=== PATIENT | female | born 1975 | race Caucasian/White ===

== ENCOUNTER 2022-09-08 17:23 | Emergency (ER) | payer MEDICAID ==
[2022-09-08] MEDS ORDERED: HYDROmorphone 1 MG/ML CARPUJECT IVP STA (17:59)
--- NOTE | 2022-09-08 18:00 | ED Physician Documentation ---
History of Present Illness - Stated complaint Stated Complaint: LFT LEG SWOLLEN - Chief complaint Chief Complaint: Resp - Additonal information Additional information: 47-year-old female presents to the ER for evaluation of acute left lower leg pain, loss of pulse and cyanotic extremity. States that she woke up this morning with some mild left leg pain is gotten acutely worse over the day and this afternoon they noticed that it was discolored. Its been painful. They applied ice to the extremity thinking maybe she pulled a muscle. No history of similar. Patient denies any history of hypertension or diabetes. She does not take any prescribed medications. She is not a tobacco user. She is also endorsing some chest pain and Shortness of air. Thought it could possibly be her asthma. Also reports she has had COVID 3 times. Thought she had long COVID 19. She is not vaccinated for COVID 19 On exam I am greeted by woman who appears acutely uncomfortable. She is a heart rate of 128. Blood pressure of 139/74. The left leg is cold and dusky in comparison to the right. I am unable to palpate femoral popliteal or DP pulses. I do have biphasic DP pulses. Monophasic femoral pulses. I could not appreciate popliteal pulses. 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 - Present Medications Home Medications: Ambulatory Orders Medication Instructions Recorded Confirmed Albuterol [Ventolin Hfa] 02/08/15 02/08/15 HYDROcod/ACETAM 5/325 [[place] 5/325] 1 - 2 ea PO Q6H PRN #15 tablet 02/08/15 - Allergies Allergies/Adverse Reactions: Allergies Allergy/AdvReac Type Severity Reaction Status Date / Time aspirin Allergy Unknown Verified 02/08/15 17:47 - Social History Does the pt smoke?: No Smoking Status: Never smoker Does the pt drink ETOH?: No Does the pt have substance abuse?: No PD ED PE EXPANDED - General General: Alert, In Pain - Cardiac Cardiac: Tachy, Radial strong equal, Prolonged cap refill (Cap refill is 3 seconds in the left leg. It is cold dusky mottled and cyanotic in appearance), Other (Monophasic left femoral Doppler pulse, no popliteal pulse dopplered. Biphasic DP pulse left leg. Normal pulses of the right leg.). No: Murmur Present - Respiratory Respiratory: Clear to ausultation rosendo. No: Distress, Labored - Abdomen Abdomen: Normal Bowel sounds, Other (No bruit appreciated. No abdominal tenderness elicited). No: Tender to palpation - Back Back: Normal exam - Derm Derm: Normal color - Extremities Extremities: Decreased/absent pulse (Absent pulse in the left femoral region and left foot. Monophasic femoral and biphasic DP pulse. Unable to obtain a popliteal pulse via doppler), Motor intact, Sensory intact - Neuro Neuro: Alert and Oriented X 3, CNII-XII intact - GCS Eye Opening: Spontaneous Motor: Obeys Commands Verbal: Oriented Total: 15 Results - Vitals Vitals: Vital Signs - 24 hr 09/08/22 17:33 Temperature 36.4 C L Heart Rate 128 H Respiratory 18 Rate Blood Pressure 139/74 H O2 Saturation 100 Oxygen O2 Source Room air - EKG (time done) 1755 EKG releavant findings:: EKG personally interpreted by author of this note. Relevant findings are: Rate: Rate (enter#) (119), Tachy Rhythm: Sinus tachycardia [place]: Normal Intervals: Normal [place] QRS: Poor R wave progression Ischemia: Normal ST segments Compare to prior EKG: Old EKG unavailable Computer interpretation: Agree with computer - Labs Labs: Laboratory Tests 09/08/22 09/08/22 09/08/22 17:58 17:58 17:58 WBC 21.1 H RBC 4.90 Hgb 7.5 L Hct 29.2 L MCV 59.6 L MCH 15.3 L MCHC 25.7 L RDW 19.8 H Plt Count 314 MPV 8.7 Manual Slide Review Indicated PT 19.7 H INR 1.8 H Sodium 133 L Potassium 3.5 Chloride 98 L Carbon Dioxide 22 Anion Gap 13.0 BUN 20 Creatinine 1.1 H Estimated GFR (MDRD) 53 L Glucose 202 H Calcium 9.0 Total Bilirubin 0.8 AST 20 ALT 14 Alkaline Phosphatase 78 Total Creatine Kinase 74 Troponin I High Sens Total Protein 8.7 H Albumin 4.2 Globulin 4.5 H Albumin/Globulin Ratio 0.9 L Lipase 30 09/08/22 17:58 WBC RBC Hgb Hct MCV MCH MCHC RDW Plt Count MPV Manual Slide Review PT INR Sodium Potassium Chloride Carbon Dioxide Anion Gap BUN Creatinine Estimated GFR (MDRD) Glucose Calcium Total Bilirubin AST ALT Alkaline Phosphatase Total Creatine Kinase Troponin I High Sens 3.0 Total Protein Albumin Globulin Albumin/Globulin Ratio Lipase PD Medical Decision Making - ED course Complexity details: d/w patient ED course: 47-year-old female presented to the emergency department for evaluation of acute left lower leg pain and discoloration. Initially began having pain this a.m. but over the course of the day is gotten progressively worse now with a cold extremity loss of pulses as well as cyanosis. I am unable to palpate femoral popliteal or DP pulses however I can obtain both femoral and DP pulses using a Doppler. Patient was initiated on heparin protocol as well as given a bolus. Labs are pending but given the finding of limb ischemia we are going to attempt to transfer for vascular intervention. 181 I have spoken with Dr. Bergman attending physician at [facility] who graciously agrees to accept the patient in ED to ED transfer. Given the critical nature of the ischemia she will be flown via life flight. Appropriate COBRA paperwork completed. I was able to briefly evaluate the CBC and electrolytes. I do note fairly modest leukocytosis 21,000. This may represent stress marginalization. She has normal renal and liver function test. Ultrasound had arrived to the bedside at the time that [facility] was entering the room. The time study technologist indicated to me that she had very briefly placed the ultrasound wand on the leg and noted that she had diffuse deep venous thrombosis but noted arterial flow. However this imaging was not completed given the need to transfer emergently. Despite the possible findings of deep venous thrombosis it still appropriate for emergent transfer given the findings that are consistent with ischemia on this leg. Departure - Departure Disposition: 02 Transfer Acute Care Hosp Clinical Impression: Ischemia of left lower extremity
[2022-09-08 18:05] LABS: BASOPHILS # (AUTO) 0.1 10^3/uL (0.0-0.1); BASOPHILS % (AUTO) 0.4 %; EOSINOPHILS % (AUTO) 0.1 %; HCT - HEMATOCRIT 29.2 % (37.0-47.0); HGB - HEMOGLOBIN 7.5 g/dL (12.0-16.0); LYMPHOCYTES # (AUTO) 1.5 10^3/uL (1.5-3.5); LYMPHOCYTES % (AUTO) 7.3 %; MEAN CORPUSCULAR HEMOGLOBIN 15.3 pg (27.0-31.0); MEAN CORPUSCULAR HGB CONC 25.7 g/dL (32.0-36.0); MEAN CORPUSCULAR VOLUME 59.6 fL (81.0-99.0); MEAN PLATELET VOLUME 8.7 fL (7.9-10.8); MONOCYTES # (AUTO) 1.4 10^3/uL (0.0-1.0); MONOCYTES % (AUTO) 6.6 %; NEUTROPHILS # (AUTO) 17.9 10^3/uL (1.5-6.6); NEUTROPHILS % (AUTO) 84.9 %; NRBC ABSOLUTE COUNT (AUTO) 0.03 x10^3/uL; NUCLEATED RED BLOOD CELLS AUTO 0.1 /100WBC; PLT - PLATELET COUNT 314 10^3/uL (130-450); RED CELL DISTRIBUTION WIDTH 19.8 % (12.0-15.0); WHITE BLOOD COUNT 21.1 x10^3/uL (4.8-10.8)
[2022-09-08 18:13] LABS: INR 1.8 (0.8-1.2); PT - PROTHROMBIN TIME 19.7 secs (9.9-12.6)
--- NOTE | 2022-09-08 18:14 | XRAY Report ---
PROCEDURE: Chest 1 View X-Ray INDICATIONS: Chest Pain TECHNIQUE: One view of the chest was acquired. COMPARISON: None. FINDINGS: Surgical changes and devices: None. Lungs and pleura: An incomplete inspiratory result is noted, with low lung volumes and crowding of t he vascular markings. No focal infiltrates are seen. No large pneumothorax or large pleural effusion can be seen. Mediastinum: Mediastinal contours appear normal. Heart size is normal. Bones and chest wall: No suspicious bony lesions. Overlying soft tissues appear unremarkable. IMPRESSION: Limited portable chest examination, without an acute abnormality identified. Reviewed by: Luiz Sneed MD on 09/08/2022 5:12 PM AKRAMÍREZ Approved by: Luiz Sneed MD on 09/08/2022 5:12 PM AKDT Station ID: [id number]
[2022-09-08 18:18] LABS: ALBUMIN 4.2 g/dL (3.2-5.5); ALBUMIN/GLOBULIN RATIO 0.9 (1.0-2.2); BILIRUBIN,TOTAL 0.8 mg/dL (0.2-1.0); CREATININE 1.1 mg/dL (0.4-1.0); POTASSIUM 3.5 mmol/L (3.5-5.0); TOTAL PROTEIN 8.7 g/dL (6.7-8.2)
[2022-09-08 18:19] LABS: SLIDE REVIEW? Indicated
[2022-09-08 18:45] LABS: PLATELET MORPHOLOGY 1+ GIANT PLATELETS (NORMAL)
[2022-09-08 18:46] LABS: HCG,QUALITATIVE BLOOD NEGATIVE; PLATELET ESTIMATE, MANUAL NORMAL (130-450,000) (NORMAL)
[2022-09-08 18:55] VITALS: BP 131/82
[2022-09-08] MEDS ORDERED: HEPARIN 25000UNITS/500ML (D5W) 25,000 UNIT/500 ML BAG IV SCH (19:00)
== END 2022-09-08 19:05 | disposition short-term general hospital (02) ==
LOC: ED 17:23
DX: I70.222 Atherosclerosis of native arteries of extremities with rest pain, left leg (principal)
CPT/HCPCS: 36415; 71045; 80053; 82550; 83690; 83880; 84484; 84703; 85025; 85610; 93005; 96374; 96375; 99285; J1170